=== PATIENT | male | born 1935 | race Hispanic/Latino ===

== ENCOUNTER 2018-01-30 12:37 | Inpatient (IN) | payer MEDICARE ==
[~2018-01-30 12:37] MED LIST: FINA5TAB41 PO; GLIP1TAB5 PO; LISI-613 PO; LOPE2TAB52 PO; SIMV40TA59 PO; TAMS0.4C32 PO
[2018-01-30] MEDS ORDERED: MORPHINE SULFATE 4 MG/1ML SYG ONE (13:27)
[2018-01-30] MEDS ORDERED: ONDANSETRON HCL 4 MG/2 ML VIAL ONE (13:27)
[2018-01-30 13:46] LABS: BASOPHILS % (AUTO) 0.7 % (0.0-5.0); EOSINOPHILS % (AUTO) 2.1 % (0.0-8.0); HEMATOCRIT 36.6 % (42-54); LYMPHOCYTES % (AUTO) 14.2 % (21.0-51.0); MEAN CORPUSCULAR HEMOGLOBIN 31.1 pg (27.0-33.0); MEAN CORPUSCULAR HGB CONC 33.9 g/dL (32.0-36.0); MEAN CORPUSCULAR VOLUME 91.8 fL (79-99); MONOCYTES % (AUTO) 11.6 % (3.0-13.0); NEUTROPHILS % (AUTO) 71.4 % (40.0-77.0); PLATELET COUNT (AUTO) 203 K/uL (130-400); RED BLOOD CELL COUNT(AUTO) 3.99 MIL/uL (4.50-6.20); RED CELL DISTRIBUTION WIDTH 13.6 % (11.0-15.5); WHITE BLOOD COUNT (AUTO) 13.4 K/uL (4.8-10.8)
[2018-01-30 13:53] LABS: CREATININE 0.8 mg/dL (0.5-1.5); POTASSIUM 3.2 mmol/L (3.5-5.1)
[2018-01-30] MEDS ORDERED: POTASSIUM BICARB/CIT AC 25 MEQ TABLET.EFF ONE (14:36)
[2018-01-30] MEDS ORDERED: SODIUM CHLORIDE 0.9% 1000ML 1,000 ML IV ONE (14:36)
[2018-01-30] MEDS ORDERED: ZOSYN 3.375GM+NS 50ML 50 ML IV ONE ×2 (14:37→19:51)
[2018-01-30] MEDS ORDERED: SODIUM CHLORIDE 0.9% 100 ML IV ONE (14:37)
[2018-01-30 16:01] LABS: APPEARANCE,URINE Cloudy (CLEAR); BILIRUBIN,URINE Negative (NEGATIVE); COLOR,URINE Yellow (YELLOW); GLUCOSE, URINE (UA) >=1000 mg/dL (NEGATIVE); KETONES,URINE Negative (NEGATIVE); LEUKOCYTE ESTERASE ,URINE Moderate (NEGATIVE); NITRATE,URINE Positive (NEGATIVE); OCCULT BLOOD,URINE Moderate (NEGATIVE); PH,URINE 5.5 (5.0-8.0); PROTEIN,URINE Trace (NEGATIVE)
[2018-01-30 16:27] LABS: BACTERIA,URINE Many /HPF (None Seen); WBC,URINE >100 /HPF (0-1)
[2018-01-30] MEDS ORDERED: BETH50TA PO (18:14)
[2018-01-30] MEDS ORDERED: METF-446 PO (18:14)
[2018-01-30] MEDS ORDERED: GLIP5TAB11 PO (18:14)
[2018-01-30] MEDS ORDERED: LOSA1TAB37 PO (18:14)
[2018-01-30] MEDS: ENOXAPARIN SODIUM 30 MG/0.3 ML SQ SCH (18:38)
[2018-01-30 19:00] VITALS: BP 168/67
[2018-01-30] MEDS: ZOSYN 3.375GM+NS 50ML 50 ML IV SCH (20:08)
[2018-01-30] MEDS: TAMSULOSIN HCL 0.4 MG CAP.ER.24H PO SCH (21:00)
[2018-01-30] MEDS: INSULIN R PO SS1 SQ SCH (21:00)
[2018-01-30] MEDS: BETHANECHOL CHLORIDE 25 MG TABLET PO SCH (21:00)
[2018-01-31 00:02] VITALS: BP 120/58
[2018-01-31 04:00] VITALS: BP 130/65
[2018-01-31] MEDS: ZOSYN 3.375GM+NS 50ML 50 ML IV SCH ×3 (06:59→21:02)
[2018-01-31] MEDS: INSULIN R PO SS1 SQ SCH ×4 (07:15→21:00)
[2018-01-31 07:30] VITALS: BP 117/52
[2018-01-31] MEDS: PANTOPRAZOLE SODIUM 40 MG TABLET.DR PO SCH (08:18)
[2018-01-31] MEDS: LOSARTAN/HYDROCHLOROTHIAZIDE 50-12.5MG TABLET PO SCH (08:18)
[2018-01-31] MEDS: BETHANECHOL CHLORIDE 25 MG TABLET PO SCH ×3 (08:24→21:02)
[2018-01-31 10:44] LABS: BASOPHILS % (AUTO) 0.6 % (0.0-5.0); EOSINOPHILS % (AUTO) 5.9 % (0.0-8.0); HEMATOCRIT 33.7 % (42-54); LYMPHOCYTES % (AUTO) 14.6 % (21.0-51.0); MEAN CORPUSCULAR HEMOGLOBIN 30.5 pg (27.0-33.0); MEAN CORPUSCULAR HGB CONC 33.5 g/dL (32.0-36.0); MEAN CORPUSCULAR VOLUME 91.2 fL (79-99); MONOCYTES % (AUTO) 12.6 % (3.0-13.0); NEUTROPHILS % (AUTO) 66.3 % (40.0-77.0); PLATELET COUNT (AUTO) 174 K/uL (130-400); RED CELL DISTRIBUTION WIDTH 13.4 % (11.0-15.5); WHITE BLOOD COUNT (AUTO) 9.3 K/uL (4.8-10.8)
[2018-01-31 10:56] LABS: ALBUMIN 2.7 g/dL (3.5-5.0); BILIRUBIN,TOTAL 0.6 mg/dL (0.2-1.0); CREATININE 0.9 mg/dL (0.5-1.5); POTASSIUM 3.8 mmol/L (3.5-5.1); TOTAL PROTEIN, SERUM 6.9 g/dL (6.0-8.3)
[2018-01-31 11:00] VITALS: BP 130/61
[2018-01-31] MEDS: SODIUM CHLORIDE 0.9% 1000ML 1,000 ML IV SCH ×2 (11:52→17:27)
[2018-01-31 16:00] VITALS: BP 150/65
[2018-01-31] MEDS: ENOXAPARIN SODIUM 30 MG/0.3 ML SQ SCH (17:27)
[2018-01-31 19:46] VITALS: BP 116/55
[2018-01-31] MEDS: TAMSULOSIN HCL 0.4 MG CAP.ER.24H PO SCH (21:02)
[2018-02-01 00:01] VITALS: BP 133/59
[2018-02-01 04:02] VITALS: BP 120/63
[2018-02-01] MEDS: ZOSYN 3.375GM+NS 50ML 50 ML IV SCH (04:49)
[2018-02-01] MEDS: SODIUM CHLORIDE 0.9% 1000ML 1,000 ML IV SCH ×3 (05:00→22:10)
[2018-02-01] MEDS: INSULIN R PO SS1 SQ SCH ×4 (06:52→21:00)
[2018-02-01 07:30] VITALS: BP 133/66
[2018-02-01] MEDS: BETHANECHOL CHLORIDE 25 MG TABLET PO SCH ×3 (09:00→22:11)
[2018-02-01] MEDS: LOSARTAN/HYDROCHLOROTHIAZIDE 50-12.5MG TABLET PO SCH (09:21)
[2018-02-01] MEDS: FINASTERIDE 5 MG TABLET PO SCH (09:22)
[2018-02-01] MEDS: PANTOPRAZOLE SODIUM 40 MG TABLET.DR PO SCH (09:22)
[2018-02-01] MEDS: CLINDAMYCIN HCL 150 MG CAP PO SCH ×3 (11:29→23:32)
[2018-02-01 11:43] VITALS: BP 139/62
[2018-02-01 15:58] VITALS: BP 143/60
[2018-02-01] MEDS: ENOXAPARIN SODIUM 30 MG/0.3 ML SQ SCH (18:31)
[2018-02-01 19:00] VITALS: BP 141/68
[2018-02-01] MEDS: TAMSULOSIN HCL 0.4 MG CAP.ER.24H PO SCH (22:11)
[2018-02-02] VITALS: BP 159/74
[2018-02-02 04:00] VITALS: BP 150/70
[2018-02-02 04:37] LABS: BASOPHILS % (AUTO) 1.3 % (0.0-5.0); EOSINOPHILS % (AUTO) 11.3 % (0.0-8.0); HEMATOCRIT 34.9 % (42-54); LYMPHOCYTES % (AUTO) 22.7 % (21.0-51.0); MEAN CORPUSCULAR HEMOGLOBIN 30.5 pg (27.0-33.0); MEAN CORPUSCULAR HGB CONC 33.6 g/dL (32.0-36.0); MEAN CORPUSCULAR VOLUME 90.6 fL (79-99); MONOCYTES % (AUTO) 10.7 % (3.0-13.0); PLATELET COUNT (AUTO) 201 K/uL (130-400); RED BLOOD CELL COUNT(AUTO) 3.85 MIL/uL (4.50-6.20); RED CELL DISTRIBUTION WIDTH 13.5 % (11.0-15.5); WHITE BLOOD COUNT (AUTO) 9.8 K/uL (4.8-10.8)
[2018-02-02 05:02] LABS: CREATININE 0.8 mg/dL (0.5-1.5); POTASSIUM 3.8 mmol/L (3.5-5.1)
[2018-02-02] MEDS: CLINDAMYCIN HCL 150 MG CAP PO SCH ×2 (06:36→11:46)
[2018-02-02] MEDS: INSULIN R PO SS1 SQ SCH ×2 (06:40→11:51)
[2018-02-02 07:53] VITALS: BP 158/70
[2018-02-02] MEDS ORDERED: CLIN300C9 PO (09:31)
[2018-02-02] MEDS: PANTOPRAZOLE SODIUM 40 MG TABLET.DR PO SCH (09:36)
[2018-02-02] MEDS: LOSARTAN/HYDROCHLOROTHIAZIDE 50-12.5MG TABLET PO SCH (09:36)
[2018-02-02] MEDS: FINASTERIDE 5 MG TABLET PO SCH (09:36)
[2018-02-02] MEDS: BETHANECHOL CHLORIDE 25 MG TABLET PO SCH (09:37)
[2018-02-02 11:46] VITALS: BP 150/65
== END 2018-02-02 13:05 | disposition home or self-care (01) | DRG 872 ==
LOC: EDH 12:37 → 3BH 16:19
PROVIDERS: ADMIT Hospitalist; ATTEND Hospitalist
DX: A41.9 Sepsis, unspecified organism (principal); E44.1 Mild protein-calorie malnutrition; N45.3 Epididymo-orchitis; I10 Essential (primary) hypertension; E11.9 Type 2 diabetes mellitus without complications; N43.3 Hydrocele, unspecified; N50.3 Cyst of epididymis; E78.5 Hyperlipidemia, unspecified; N40.0 Benign prostatic hyperplasia without lower urinary tract symptoms; Z87.891 Personal history of nicotine dependence
CPT/HCPCS: 36415; 76870; 80048; 80053; 81001; 82948; 83605; 85025; 87040; 87088; 87186; J1650; J1815; J2270; J2405; J2543; J7030

== ENCOUNTER → 2020-01-09 | Outpatient (CLI) | payer MEDICARE ==
[~2020-01-09] MED LIST changes: +BETH50TA PO; +CLIN300C9 PO; -GLIP1TAB5 PO; +GLIP5TAB11 PO; -LISI-613 PO; -LOPE2TAB52 PO; +LOSA1TAB37 PO; +METF-446 PO
== END | disposition home or self-care (01) ==
LOC: RAH 10:18
PROVIDERS: ATTEND Urology
DX: N20.0 Calculus of kidney (principal); K75.3 Granulomatous hepatitis, not elsewhere classified; K57.30 Diverticulosis of large intestine without perforation or abscess without bleeding; J98.11 Atelectasis; N32.89 Other specified disorders of bladder; M47.816 Spondylosis without myelopathy or radiculopathy, lumbar region; M25.78 Osteophyte, vertebrae; R33.9 Retention of urine, unspecified
CPT/HCPCS: 74176

== ENCOUNTER 2022-07-09 14:48 | Emergency (ER) | payer MEDICARE, OTHER ==
[~2022-07-09] VITALS: Ht 160 cm; Wt 54.0 kg
[~2022-07-09 14:48] MED LIST changes: +CLIN-141 PO; -CLIN300C9 PO
[2022-07-09 18:12] LABS: BASOPHILS % (AUTO) 0.7 % (0.0-5.0); EOSINOPHILS % (AUTO) 11.9 % (0.0-8.0); HEMATOCRIT 34.2 % (42-54); LYMPHOCYTES % (AUTO) 21.1 % (21.0-51.0); MEAN CORPUSCULAR HEMOGLOBIN 30.1 pg (27.0-33.0); MEAN CORPUSCULAR HGB CONC 33.6 g/dL (32.0-36.0); MEAN CORPUSCULAR VOLUME 89.5 fL (79-99); MONOCYTES % (AUTO) 13.9 % (3.0-13.0); NEUTROPHILS % (AUTO) 51.9 % (40.0-77.0); PLATELET COUNT (AUTO) 189 K/uL (130-400); RED BLOOD CELL COUNT(AUTO) 3.82 MIL/uL (4.50-6.20); RED CELL DISTRIBUTION WIDTH 14.2 % (11.0-15.5); WHITE BLOOD COUNT (AUTO) 8.6 K/uL (4.8-10.8)
[2022-07-09 18:22] LABS: CREATININE 0.8 mg/dL (0.5-1.5); POTASSIUM 3.9 mmol/L (3.5-5.1)
[2022-07-09 18:26] LABS: ALBUMIN 3.2 g/dL (3.5-5.0); TOTAL PROTEIN, SERUM 7.3 g/dL (6.0-8.3)
[2022-07-09] MEDS ORDERED: IOHEXOL 350 MG/ML 100ML INFUS..BTL IV ONE (18:42)
[2022-07-09 19:14] LABS: APPEARANCE,URINE CLEAR (CLEAR); BILIRUBIN,URINE NEGATIVE (NEGATIVE); COLOR,URINE YELLOW (YELLOW); GLUCOSE, URINE (UA) >=1000 mg/dL (NEGATIVE); KETONES,URINE NEGATIVE (NEGATIVE); LEUKOCYTE ESTERASE ,URINE NEGATIVE Leu/uL (NEGATIVE); NITRATE,URINE NEGATIVE (NEGATIVE); OCCULT BLOOD,URINE LARGE (NEGATIVE); PROTEIN,URINE 10 mg/dL (NEGATIVE); UROBILINOGEN,URINE 0.2 mg/dL (0.2-1.0)
[2022-07-09 19:36] LABS: MUCUS,URINE RARE LPF (None Seen); RBC,URINE 51-100 /HPF (0-1); SQUAMOUS EPITHELIAL CELL,UR FEW /HPF (0-2)
[2022-07-09] MEDS ORDERED: CIPR-278 PO (20:21)
[2022-07-09 20:25] VITALS: BP 145/74
== END 2022-07-09 21:27 | disposition home or self-care (01) ==
LOC: EDH 14:48
DX: R33.9 Retention of urine, unspecified (principal); E11.9 Type 2 diabetes mellitus without complications; I10 Essential (primary) hypertension; Z79.84 Long term (current) use of oral hypoglycemic drugs; Z90.49 Acquired absence of other specified parts of digestive tract; Z79.899 Other long term (current) drug therapy
CPT/HCPCS: 99285; 74177; 80053; 85025; 87088; 81001; 36415; 51702; Q9967